=== PATIENT | male | born 1970 | race Caucasian/White ===

== ENCOUNTER 2017-12-18 02:21 | Emergency (ER) | payer OTHER, SELFPAY ==
[2017-12-18 02:26] VITALS: BP 144/84; PULSE 68; RESP 20; TEMP 36.8; O2SAT 100; BMI 38.5
[2017-12-18] MEDS: KETOROLAC 60 MG/2 ML VIAL 30 MG IM (02:48)
[2017-12-18] MEDS: CYCLOBENZAPRINE 10 MG PREPACK 1 BOTTLE MISC (02:48)
[2017-12-18] MEDS: HYDROCODONE/ACET 5/325 PREPACK 1 BOTTLE MISC (02:48)
--- NOTE | 2017-12-18 02:58 | ED_ITS ---
HPI - Back Pain/Injury General Chief Complaint: Back Pain/Injury Stated Complaint: right shoulder pain, unable to move Time Seen by Provider: 12/18/17 02:22 Source: patient Mode of arrival: ambulatory Limitations: no limitations History of Present Illness HPI Narrative: 47-year-old male here for evaluation of left upper back pain. Patient states that it started after he woke up after sleeping on the couch. He states that he has had similar symptoms in the past. He has been told that it was musculoskeletal. He states that he has seen a chiropractor in the past for it. He states that today's pain is like his prior pain. Prior to his nap he was not having any discomfort. He states that after he has woken up he has been unable to stand up straight in move his left arm secondary to the pain. Has not tried anything for it prior to arrival Related Data Home Medications Medication Instructions Recorded Confirmed acyclovir 800 mg PO TIDP PRN #0 05/09/17 omeprazole 20 mg PO QDAYP PRN #0 05/09/17 Previous Rx's Medication Instructions Recorded oxycodone-acetaminophen [Percocet] 1 - 2 tab PO Q6HP PRN #20 tab 05/09/17 Allergies Allergy/AdvReac Type Severity Reaction Status Date / Time No Known Allergies Allergy Uncoded 10/16/17 11:47 Review of Systems Constitutional Denies chills, Denies fever(s), Denies lethargy and Denies weakness Cardiovascular Denies dyspnea and Denies dyspnea on exertion Respiratory Denies cough, Denies dyspnea, Denies dyspnea on exertion and Denies wheezing Musculoskeletal Comments: left-sided mid back pain Integumentary/Breasts Denies pruritus, Denies erythema, Denies rash and Denies wounds Neurologic Denies weakness Hematologic/Lymphatic Denies easy bruising Allergic/Immunologic Denies wheezing [facility] Social History Smoking Status: Never smoker Exam Initial Vital Signs Initial Vital Signs: Vital Signs Temperature 98.3 F 12/18/17 02:26 Pulse Rate 68 12/18/17 02:26 Respiratory Rate 20 12/18/17 02:26 Blood Pressure 144/84 H 12/18/17 02:26 Pulse Oximetry 100 12/18/17 02:26 Const General: cooperative and well developed Nutritional Appearance: well nourished Orientation: alert, awake, oriented x3 and not confused Resp Effort & Inspection: normal respiratory effort, no cough and not labored Back/Spine/Pelvis Back: normal to inspection, back tenderness and No CVA tenderness Cervical Spine: No cervical muscular tenderness, No pain with cervical ROM, No cervical spasm and No cervical spinal tenderness Thoracic/Lumbar Spine: thoracic and lumbar spine normal to inspection, No surgical scar(s) present and paraspinal tenderness ( left over the rhomboids) Skin General: no rashes or lesions noted, No jaundice and No petechiae Neuro General: alert, awake and oriented x3 Cognition: normal cognition Speech: speech normal Course Orders Ordered: Discontinued Medications Hydrocodone Bitart/Acetaminophen (Vicodin Prepack) 1 bottle MISC SEEINSTR ONE Stop: 12/18/17 02:42 Last Admin: 12/18/17 02:48 Dose: 1 bottle Cyclobenzaprine HCl (Flexeril 10 Mg Prepack) 1 bottle MISC SEEINSTR ONE Stop: 12/18/17 02:42 Last Admin: 12/18/17 02:48 Dose: 1 bottle Ketorolac Tromethamine (Toradol) 30 mg IM NOW ONE Stop: 12/18/17 02:42 Last Admin: 12/18/17 02:48 Dose: 30 mg Vital Signs - 8 hr 12/18/17 02:26 Temperature 98.3 F Pulse Rate 68 Respiratory Rate 20 Blood Pressure 144/84 H Pulse Oximetry 100 MDM - Back Pain/Injury MDM Narrative Medical decision making narrative: patient with tenderness to palpation over the rhomboids on the left side. He has no symptoms inferior to the rhomboids and no symptoms superior. No skin changes. We did discuss the fact that his symptoms are musculoskeletal. We discussed care instructions to include anti- inflammatories and light stretching and heat /ice. He was given a Toradol shot here in the emergency department. Was sent home with a prepack of Flexeril and [place]. We did discuss the other modalities that he can do at home. He was given return precautions. He was informed that this may take several days to improve. Will hold on any radiologic studies for now. Discharge Plan Departure Patient Disposition: Home, Self-Care Clinical Impression: Thoracic back pain Instructions: How To Perform RICE (Rest, Ice, Compress, Elevate), DI for Back Strain or Sprain Activity Restrictions/Additional Instructions: recommend that you continue with the anti-inflammatories such as Motrin / Naprosyn/ibuprofen/Advil. Take the other medications that she were given this evening as directed. Also recommend that you continue with light stretching and massage. You can also ice the area. The area may be sore for the next several days. Return to the emergency department for any new or worsening symptoms Prescriptions: No Action acyclovir 800 MG tablet 800 mg PO TIDP PRNQty: 0 RF: 0 omeprazole 20 MG tablet,delayed release (DR/EC) 20 mg PO QDAYP PRNQty: 0 RF: 0 oxycodone-acetaminophen [Percocet] 5 MG/325 MG tablet 1 - 2 tab PO Q6HP PRNQty: 20 RF: 0
[2017-12-18 03:33] VITALS: BP 128/72; PULSE 72; RESP 18; O2SAT 100
== END 2017-12-18 03:25 | disposition home or self-care (01) ==
PROVIDERS: Emergency Provider Emergency Medicine
DX: M54.6 Pain in thoracic spine (principal)
CPT/HCPCS: 96372; 99282; 99283; J1885

== ENCOUNTER → 2020-08-15 15:25 | Outpatient (CLI) | payer BC, SELFPAY ==
--- NOTE | 2020-08-15 | DI.RAD.S_ITS ---
PROCEDURE: XR SHOULDER LT MIN 2V INDICATIONS: LEFT SHOULDER PAIN TECHNIQUE: 3 views of the shoulder were acquired. COMPARISON: None. FINDINGS: Bones: No fractures or dislocations. Moderate acromioclavicular joint and glenohumeral joint osteoarthritic changes are seen. No suspicious bony lesions. Visualized ribs appear intact. Soft tissues: No suspicious soft tissue calcifications. IMPRESSION: Moderate left shoulder joint osteoarthritis. No fracture or dislocation. Dictated by: Thomas Boyd M.D. on 08/15/2020 at 16:35 Approved by: Thomas Boyd M.D. on 08/15/2020 at 16:36
== END ==
PROVIDERS: PCP Student in an Organized Health Care Education/Training Program; Referring Provider Student in an Organized Health Care Education/Training Program; Visit Provider Student in an Organized Health Care Education/Training Program
DX: M25.512 Pain in left shoulder (principal); M19.012 Primary osteoarthritis, left shoulder
CPT/HCPCS: 73030

== ENCOUNTER → 2020-10-15 08:26 | Outpatient (CLI) | payer BC, SELFPAY ==
[2020-10-15 09:14] LABS: Add Manual Diff / Slide Review NO; Basophils Absolute Auto 0 /uL (0-100); Basophils Percent Auto 0.4 % (0-2); Eosinophils Absolute Auto 200 /uL (0-450); Eosinophils Percent Auto 3.1 % (2-4); Hematocrit 40.1 % (41-53); Hemoglobin 13.4 g/dL (13.5-17.5); Lymphocytes Absolute Auto 2100 /uL (1100-4500); Lymphocytes Percent Auto 37.7 % (25-40); Mean Corpuscular HGB Conc 33.4 % (30-36); Mean Corpuscular Hemoglobin 29.7 PG (26-34); Mean Corpuscular Volume 88.9 fL (80-100); Monocytes Absolute Auto 500 /uL (0-900); Monocytes Percent Auto 9.4 % (3-14); Neutrophils Absolute Auto 2800 /uL (1500-7000); Neutrophils Percent Auto 49.4 % (50-75); Platelet Count 217 X10^3/uL (150-400); Red Blood Cell Count 4.52 X10^6/uL (4.5-5.9); Red Cell Distribution Width 13.5 % (11.6-14.8); White Blood Cell Count 5.6 X10^3/uL (4.5-11.0)
[2020-10-15 09:40] LABS: Alanine Aminotransferase 21 IU/L (<50); Albumin 3.9 g/dL (3.5-5.0); Albumin Globulin Ratio 1.6 (1.0-2.8); Alkaline Phosphatase 77 U/L (38-126); Aspartate Aminotransferase 28 IU/L (17-59); BUN Creatinine Ratio 20.5 (6-22); Bilirubin Total 0.8 mg/dL (0.2-1.3); Blood Urea Nitrogen 18 mg/dL (9-20); Calcium 9.7 mg/dL (8.4-10.2); Carbon Dioxide 30 mmol/L (22-32); Chloride 103 mmol/L (98-107); Cholesterol 198 mg/dL (140-199); Estimated Glomerular Filt Rate > 60.0 mL/min (>60); Globulin 2.5 g/dL (1.7-4.1); Glucose 98 mg/dL (70-100); HDL Cholesterol 57 mg/dL (40-60); HEMOLYSIS < 15 (0-50); LDL Cholesterol Calculated 128 mg/dL (<100); Potassium 4.6 mmol/L (3.4-5.1); Sodium 138 mmol/L (137-145); Total Protein 6.4 g/dL (6.3-8.2); Triglycerides 65 mg/dL (35-150)
[2020-10-15 10:47] LABS: Prostate Specific Antigen 0.723 ng/mL (0.10-4.00)
== END ==
PROVIDERS: PCP Family Medicine; Referring Provider Family Medicine; Visit Provider Family Medicine
DX: Z00.00 Encounter for general adult medical examination without abnormal findings (principal)
CPT/HCPCS: 36415; 80053; 80061; 84153; 85025

== ENCOUNTER → 2020-12-07 16:15 | Outpatient (CLI) | payer BC, SELFPAY ==
[2020-12-07 17:02] LABS: COVID19 -Nasal RAPID Negative (Negative)
== END ==
PROVIDERS: PCP Family Medicine; Visit Provider Surgery
DX: Z20.822 Contact with and (suspected) exposure to COVID-19 (principal)
CPT/HCPCS: 87635; C9803

== ENCOUNTER 2020-12-08 11:58 | Day surgery (SDC) | payer BC, SELFPAY ==
[2020-12-08] VITALS (11 sets, daily range): BP systolic 90–128; BP diastolic 48–73; PULSE 47–69; RESP 12–16; TEMP 35.9–36.9; O2SAT 97–99; BMI 28.8
--- NOTE | 2020-12-08 | PATH_ITS ---
[facility] Accession Number: [id number] . 01 Material submitted: . rectum - RECTAL POLYP . 02 Diagnosis: Rectum, Polyp, Biopsy: Hyperplastic polyp. MRV 12/13/2020 1504 Local . 02 Electronically signed: . Hoda Correa MD, Pathologist NPI- [id number] . 01 Gross description: . RECTAL POLYP: Received in formalin is 1 fragment(s) of lang, soft tissue measuring 0.3 x 0.2 x 0.2 cm submitted entirely in 1 cassette(s) /RAY 12/09/2020 0714 Local . 02 Pathologist provided ICD-10: K62.1 . 02 CPT . 254058 Performed at: 01 [facility] [address] [facility], [place], [place] [id number] MD Juan Maldonado MD Phone: [phone] Performed at: 02 [facility] [address] [place], [place] [id number] MD Hoda Correa MD Phone: [phone]
[2020-12-08] MEDS: LACTATED RINGERS 1,000 ML 200 ML IV (13:26)
--- NOTE | 2020-12-08 13:30 | PM.HP.1 ---
History of Present Illness History of Present Illness Date Patient Seen: 12/08/20 Time Patient Seen: 13:30 Chief complaint: SCREENING COLONOSCOPY Narrative: The patient presents for colorectal sreening. He had previous endoscopy 5 years ago significant for benign polyps. No personal or family history of colon cancer. On further history denies any recent gastrointestinal symptoms. No nausea, vomiting, abdominal pain, loss of appetite, unexplained weight loss, change in bowel habits, diarrhea, constipation, melena, hematochezia, or bright red blood per rectum. Patient History Medical History Dermatitis Encounter for well adult exam without abnormal findings Fractures Headache Herpes Lisfranc dislocation Preventative health care Shoulder pain (~1999) Wears glasses Surgical History Anesthesia Hammer toes of both feet (~1975) History of foot surgery (~2011) Hx of arthroscopy of left knee Family & Social History Social History: household members significant other Tobacco & Substance use: Smoking Status Never smoker alcohol intake current alcohol intake frequency a few times a month Substance Use Type does not use Meds Home Medications and Allergies Home Medications Medication Instructions Recorded Confirmed Type clobetasol 0.05 % topical cream 1 applic TOPICAL DAILY PRN 10/11/20 12/08/20 History famciclovir 125 mg tablet 125 mg PO tab 10/11/20 10/18/20 History omeprazole 20 mg capsule,delayed 20 mg PO DAILY 10/11/20 12/08/20 History release Allergies Allergy/AdvReac Type Severity Reaction Status Date / Time pollen extracts Allergy Congested Verified 12/08/20 13:13 Review of Systems Review of Systems ROS: Yes All systems reviewed with the patient and are negative except as otherwise documented Exam Vital Signs (past 8 hours): - 12/08/20 13:13 Temperature 96.7 F L Pulse Rate 61 Respiratory Rate 16 Blood Pressure 128/73 Pulse Oximetry 97 Oxygen Delivery Method Room Air Oxygen Flow Rate 0 Narrative Exam Narrative: GENERAL-well developed adult male, no acute distress HEENT-no scleral icterus, hearing intact NECK-no JVD, trachea midline CVS- regular rate, no peripheral edema RESP-unlabored respiratory effort, no audible wheezing GI-soft, nontender nondistended MSK-no cyanosis or clubbing, extremities without deformity SKIN-warm, dry NEURO-alert and oriented, no focal deficits PYSCH-Appropriate mood and affect Assessment & Plan Assessment & Plan narrative: The patient requires colorectal screening and colonoscopy is recommended. Technical details were discussed. Risks, benefits, alternatives explained. Risks including but not limited to myocardial infarction, aspiration, bleeding, pain, missed lesion, incomplete examination, need for further radiographic studies, colonic perforation, and need for major abdominal surgery were discussed. All questions were answered to their satisfaction, and they are in agreement with this plan.
[2020-12-08] MEDS: MIDAZOLAM 5 MG/5 ML VIAL IV (14:30)
[2020-12-08] MEDS: fentaNYL 250 MCG/5 ML INJ IV (14:30)
--- NOTE | 2020-12-08 15:38 | PM.OP.ENDO ---
Operative Date/Time/Diagnoses Date of procedure: 12/08/20 Time of procedure: 15:39 Pre-op diagnosis: Personal history of colonic polyps Post-op diagnosis: same Procedure & Clinicians Study performed: Colonoscopy and polypectomy Same procedure as scheduled: Yes Indications: Personal history of colonic polyps Surgeon: Shane Colunga Procedure Notes Procedure in detail: Medications: Conscious sedation using 6mg IV midazolam and 200mcg IV of fentanyl The history and physical was performed/updated and the patient is ASA class is 2. The procedure was discussed in detail with the patient. Potential risks complications including infection, bleeding, missed diagnosis, perforation, need for surgery, and were explained. Their questions were answered and informed consent was obtained. Patient was brought to the procedure room and placed standard monitoring equipment. The patient's vital signs were monitored continuously throughout the entire procedure. Prior to starting time-out was performed. The patient was placed in the left lateral recumbent position. Procedural sedation was administered. Examination began with a thorough inspection of the perianal area there was no evidence of fissures, fistulae, external hemorrhoids or cutaneous malignancy. The colonoscopy scope was then placed into the anal canal and was advanced to the cecum, which was identified by the ileocecal valve, the appendiceal orifice and the confluence of the taenia. The scope was then slowly withdrawn examining colon thoroughly in all directions, irrigating it of any residual stool. 1. 5 mm polyp in the rectum removed with biopsy forceps. 2. sigmoid diverticulosis 3. Grade 1 internal hemorrhoids The patient tolerated the procedure well. They will be discharged once criteria are met. The prep was of good/excellent quality. The withdrawl time was 6 minutes. The sedation time was 24 minutes. Specimen(s): other (Rectal polyp) Complications: none Impression: Colonic polyp Post-procedure Recommendations: Colonscopy in 5 years Disposition: same day surgery
== END 2020-12-08 16:01 | disposition home or self-care (01) ==
PROVIDERS: PCP Family Medicine; Referring Provider Surgery; Visit Provider Surgery
PROC: 0DJD8ZZ Inspection of Lower Intestinal Tract, Via Natural or Artificial Opening Endoscopic (ICD-10-PCS; CPT 45378; principal; 2020-12-08 13:00)
DX: Z12.11 Encounter for screening for malignant neoplasm of colon (principal); Z86.010 Personal history of colon polyps; K57.30 Diverticulosis of large intestine without perforation or abscess without bleeding; K64.0 First degree hemorrhoids; K62.1 Rectal polyp
CPT/HCPCS: 45380; 99152; J2250; J3010

== ENCOUNTER → 2021-05-02 17:09 | Outpatient (CLI) | payer BC, SELFPAY ==
--- NOTE | 2021-05-02 | DI.RAD.S_ITS ---
PROCEDURE: XR THORACIC SPINE 3V INDICATIONS: Back Pain TECHNIQUE: 3 views of the thoracic spine were acquired. COMPARISON: None. FINDINGS: Bones: No fractures or dislocations. Anterior endplate osteophytosis. Tclm-fo-xrnbtemj disc height loss. No suspicious bony lesions. 12 pairs of ribs are noted, and appear intact where visualized. Soft tissues: No paravertebral stripe thickening. IMPRESSION: No acute osseous abnormality. Dictated by: Myke Alford M.D. on 05/03/2021 at 9:03 Approved by: Myke Alford M.D. on 05/03/2021 at 9:06
== END ==
PROVIDERS: PCP Family Medicine; Referring Provider Chiropractor; Visit Provider Chiropractor
DX: S23.110A Subluxation of T1/T2 thoracic vertebra, initial encounter (principal); M54.9 Dorsalgia, unspecified
CPT/HCPCS: 72072

== ENCOUNTER → 2022-01-25 16:21 | Outpatient (CLI) | payer BC, SELFPAY ==
--- NOTE | 2022-01-25 16:24 | DI.RAD.S_ITS ---
PROCEDURE: XR KNEE LT 3V INDICATIONS: left knee pain TECHNIQUE: 3 views of the knee were acquired. COMPARISON: None. FINDINGS: Bones: Degenerative changes and medial joint space narrowing. No fractures or dislocations. No suspicious bony lesions. There is joint space narrowing of the lateral patellar facet. Soft tissues: No joint effusion. No suspicious soft tissue calcifications. IMPRESSION: Tricompartmental degenerative changes consistent with osteoarthritis. Dictated by: James Anthony M.D. on 01/25/2022 at 17:14 Approved by: James Anthony M.D. on 01/25/2022 at 17:15
== END ==
PROVIDERS: PCP Family Medicine; Referring Provider Family Medicine; Visit Provider Family Medicine
DX: M25.562 Pain in left knee (principal); G89.29 Other chronic pain
CPT/HCPCS: 73562

== ENCOUNTER → 2023-01-22 16:09 | Outpatient (CLI) | payer BC, SELFPAY ==
--- NOTE | 2023-01-22 16:11 | DI.RAD.S_ITS ---
PROCEDURE: XR THORACIC SPINE 3V INDICATIONS: Worsening neck and upper back pain TECHNIQUE: 3 views of the thoracic spine were acquired. COMPARISON: [facility], CR, XR THORACIC SPINE 3V, 05/02/2021, 17:06. FINDINGS: Bones: Loss of height noted in the T7 vertebral body compatible with compression fracture of indeterminate age. T7 compression deformity results in approximately 40% loss of normal anterior vertebral body height. No suspicious bony lesions. 12 pairs of ribs are noted, and appear intact where visualized. Moderate degenerative disc changes throughout the thoracic spine. Soft tissues: No paravertebral stripe thickening. IMPRESSION: T7 compression fracture of indeterminate age. If symptoms and/or clinical suspicion for pathology persists, evaluation with CT or MRI should be considered for further assessment. Multilevel degenerative disc disease. Multilevel facet arthropathy. Dictated by: Cat Bauman MD, PhD on 01/22/2023 at 17:10 Approved by: Cat Bauman MD, PhD on 01/22/2023 at 17:11
--- NOTE | 2023-01-22 16:11 | DI.RAD.S_ITS ---
PROCEDURE: XR CERVICAL SPINE 2V OR 3V INDICATIONS: Worsening neck and upper back pain TECHNIQUE: 3 view(s) of the cervical spine were acquired. COMPARISON: None. FINDINGS: Bones: No fractures or dislocations to the T1 level. The lateral masses of C1 appear intact on the odontoid view. No suspicious bony lesions. Mild degenerative disc changes throughout the cervical spine. Mild facet and uncovertebral hypertrophy throughout the cervical spine. Soft tissues: No prevertebral soft tissue swelling. IMPRESSION: 1. Multilevel degenerative disc disease. 2. Multilevel facet and uncovertebral arthropathy. 3. No fracture. No acute osseous lesion. If symptoms and/or clinical suspicion for pathology persists, evaluation with MRI should be considered for further assessment. Dictated by: Cat Bauman MD, PhD on 01/22/2023 at 17:09 Approved by: Cat Bauman MD, PhD on 01/22/2023 at 17:10
[2023-01-22 18:42] LABS: Rheumatoid Factor < 8.6 IU/mL (<12.0)
[2023-01-22 20:44] LABS: Erythrocyte Sedimentation Rate 4 MM/HR (0-15)
[2023-01-22 20:46] LABS: Add Manual Diff / Slide Review NO; Basophils Absolute Auto 0 /uL (0-100); Basophils Percent Auto 0.5 % (0-2); Eosinophils Absolute Auto 200 /uL (0-450); Eosinophils Percent Auto 3.6 % (2-4); Hematocrit 38.7 % (41-53); Hemoglobin 12.9 g/dL (13.5-17.5); Lymphocytes Absolute Auto 2000 /uL (1100-4500); Lymphocytes Percent Auto 32.9 % (25-40); Mean Corpuscular HGB Conc 33.3 % (30-36); Mean Corpuscular Hemoglobin 28.9 PG (26-34); Mean Corpuscular Volume 86.8 fL (80-100); Monocytes Absolute Auto 500 /uL (0-900); Neutrophils Absolute Auto 3400 /uL (1500-7000); Platelet Count 220 X10^3/uL (150-400); Red Blood Cell Count 4.46 X10^6/uL (4.5-5.9); Red Cell Distribution Width 13.6 % (11.6-14.8); White Blood Cell Count 6.2 X10^3/uL (4.5-11.0)
[2023-01-24 17:36] LABS: CCP Antibodies IgG/IgA 4 units (0-19)
[2023-01-26 15:44] LABS: ANA Screen, IFA Negative (.)
[2023-01-28 16:29] LABS: HLA B27 Negative (.)
== END ==
PROVIDERS: PCP Family Medicine; Referring Provider Family Medicine; Visit Provider Family Medicine
DX: M47.812 Spondylosis without myelopathy or radiculopathy, cervical region (principal); M47.814 Spondylosis without myelopathy or radiculopathy, thoracic region; M50.30 Other cervical disc degeneration, unspecified cervical region; M51.34 Other intervertebral disc degeneration, thoracic region; M45.9 Ankylosing spondylitis of unspecified sites in spine
CPT/HCPCS: 36415; 72040; 72072; 81374; 85025; 85651; 86038; 86200; 86430

== ENCOUNTER → 2023-08-09 10:23 | Outpatient (CLI) | payer OTHER, MEDICAID, SELFPAY ==
[2023-08-09 11:14] LABS: Add Manual Diff / Slide Review NO; Basophils Absolute Auto 0 /uL (0-100); Basophils Percent Auto 0.4 % (0-2); Eosinophils Absolute Auto 200 /uL (0-450); Eosinophils Percent Auto 3.7 % (2-4); Hematocrit 40.3 % (41-53); Hemoglobin 13.6 g/dL (13.5-17.5); Lymphocytes Absolute Auto 2300 /uL (1100-4500); Lymphocytes Percent Auto 38.3 % (25-40); Mean Corpuscular HGB Conc 33.6 % (30-36); Mean Corpuscular Hemoglobin 29.2 PG (26-34); Mean Corpuscular Volume 86.9 fL (80-100); Monocytes Absolute Auto 500 /uL (0-900); Monocytes Percent Auto 8.5 % (3-14); Neutrophils Absolute Auto 2900 /uL (1500-7000); Neutrophils Percent Auto 49.1 % (50-75); Platelet Count 212 X10^3/uL (150-400); Red Blood Cell Count 4.64 X10^6/uL (4.5-5.9); Red Cell Distribution Width 13.8 % (11.6-14.8); White Blood Cell Count 5.9 X10^3/uL (4.5-11.0)
[2023-08-09 11:19] LABS: Alanine Aminotransferase 22 IU/L (<50); Albumin 4.1 g/dL (3.5-5.0); Albumin Globulin Ratio 1.4 (1.0-2.8); Alkaline Phosphatase 64 U/L (38-126); Aspartate Aminotransferase 28 IU/L (17-59); BUN Creatinine Ratio 19.8 (6-22); Bilirubin Total 0.8 mg/dL (0.2-1.3); Blood Urea Nitrogen 19 mg/dL (9-20); Calcium 9.6 mg/dL (8.4-10.2); Carbon Dioxide 31 mmol/L (22-32); Chloride 103 mmol/L (98-107); Cholesterol 242 mg/dL (140-199); Estimated Glomerular Filt Rate > 60 mL/min (>60); Globulin 2.9 g/dL (1.7-4.1); Glucose 97 mg/dL (70-100); HDL Cholesterol 45 mg/dL (40-60); HEMOLYSIS < 15 (0-50); LDL Cholesterol Calculated 160 mg/dL (<100); Potassium 4.6 mmol/L (3.4-5.1); Sodium 137 mmol/L (137-145); Triglycerides 185 mg/dL (35-150)
[2023-08-09 11:41] LABS: Vitamin D 25 Hydroxy (D3) 112 ng/mL (30.0-100.0)
[2023-08-09 11:48] LABS: Prostate Specific Antigen 0.828 ng/mL (0.10-4.00)
== END ==
LOC: LAB 10:23
PROVIDERS: PCP Family Medicine; Referring Provider Family Medicine; Visit Provider Family Medicine
DX: Z00.00 Encounter for general adult medical examination without abnormal findings (principal); R79.89 Other specified abnormal findings of blood chemistry
CPT/HCPCS: 36415; 80053; 80061; 82306; 84153; 85025

== ENCOUNTER → 2024-08-10 08:26 | Outpatient (CLI) | payer OTHER, SELFPAY ==
[2024-08-10 09:12] LABS: Influenza A - CEPHEID Flu A NEGATIVE (NEGATIVE); Influenza B - CEPHEID Flu B NEGATIVE (NEGATIVE); Respiratory Syncytial Virus Negative (Negative)
[2024-08-10 09:13] LABS: COVID-19 CEPHEID 4-PLEX PCR Negative (Negative)
== END ==
PROVIDERS: PCP Family Medicine; Visit Provider Registered Nurse
DX: R05.1 Acute cough (principal)
CPT/HCPCS: 0241U

== ENCOUNTER → 2024-09-25 16:46 | Outpatient (CLI) | payer OTHER, SELFPAY ==
[2024-09-25 18:10] LABS: Add Manual Diff / Slide Review NO; Basophils Absolute Auto 0 /uL (0-100); Basophils Percent Auto 0.3 % (0-2); Eosinophils Absolute Auto 200 /uL (0-450); Eosinophils Percent Auto 3.7 % (2-4); Hematocrit 39.1 % (41-53); Hemoglobin 12.9 g/dL (13.5-17.5); Lymphocytes Absolute Auto 2500 /uL (1100-4500); Lymphocytes Percent Auto 39.4 % (25-40); Mean Corpuscular Hemoglobin 28.7 PG (26-34); Mean Corpuscular Volume 87.1 fL (80-100); Monocytes Absolute Auto 600 /uL (0-900); Neutrophils Absolute Auto 3000 /uL (1500-7000); Neutrophils Percent Auto 46.6 % (50-75); Platelet Count 227 X10^3/uL (150-400); White Blood Cell Count 6.4 X10^3/uL (4.5-11.0)
[2024-09-25 18:33] LABS: Alanine Aminotransferase 73 IU/L (<50); Albumin 4.4 g/dL (3.5-5.0); Albumin Globulin Ratio 1.9 (1.0-2.8); Alkaline Phosphatase 71 U/L (38-126); Aspartate Aminotransferase 72 IU/L (17-59); BUN Creatinine Ratio 19.6 (6-22); Bilirubin Total 0.6 mg/dL (0.2-1.3); Blood Urea Nitrogen 19 mg/dL (9-20); Calcium 9.6 mg/dL (8.4-10.2); Carbon Dioxide 28 mmol/L (22-32); Chloride 100 mmol/L (98-107); Cholesterol 219 mg/dL (140-199); Estimated Glomerular Filt Rate > 60 mL/min (>60); Globulin 2.3 g/dL (1.7-4.1); Glucose 87 mg/dL (70-100); HDL Cholesterol 50 mg/dL (40-60); HEMOLYSIS < 15 (0-50); LDL Cholesterol Calculated 147 mg/dL (<100); Potassium 4.7 mmol/L (3.4-5.1); Sodium 136 mmol/L (137-145); Total Protein 6.7 g/dL (6.3-8.2); Triglycerides 108 mg/dL (35-150)
[2024-09-25 19:03] LABS: Prostate Specific Antigen 0.645 ng/mL (0.10-4.00)
== END ==
PROVIDERS: PCP Family Medicine; Referring Provider Family Medicine; Visit Provider Family Medicine
DX: Z00.00 Encounter for general adult medical examination without abnormal findings (principal); M25.561 Pain in right knee; M25.562 Pain in left knee
CPT/HCPCS: 36415; 80053; 80061; 84153; 85025

== ENCOUNTER → 2024-11-05 15:12 | Outpatient (CLI) | payer OTHER, SELFPAY ==
--- NOTE | 2024-11-05 15:16 | DI.ECHO.S_ITS ---
[facility] : : [id number] : [place] : : [id number] : : Phone: [phone] Echocardiogram Report + + :Name: THEA PEREIRA Study Date: 11/05/2024 Height: 74 in : :Hospital ReadingLocation: Weight: 240 lb : : Gender: Male BSA: 2.3 m2 : :: 1970 Age: 54 yrs BP: 141/88 mmHg: :Reason For Study: MURMUR : :Ordering Physician: TOÑO, : :MANNY Performed By: Maicol Perez : :Referring: MANNY LUNDBERG : + + Interpretation Summary 1) Normal left ventricular thickness, size, wall motion, and systolic function (EF 60-65%). 2) Normal right ventricular size and function. 3) There is moderate aortic stenosis (valve area 1.4cm2, mean gradient 35.5mmHg, severity ratio 0.36). Right coronary cusp appears heavily calcified with significantly reduced mobility. 4) No prior Echo available for comparison. Recommend cardiology consultation. Procedure: A two-dimensional transthoracic echocardiogram with color flow and Doppler was performed. The study quality was technically good. There is no prior echocardiogram noted for this patient. The patient was in normal sinus rhythm during the exam. Left Ventricle: There is normal left ventricular wall thickness. The left ventricle is mildly dilated. There is no ventricular septal defect visualized. The ejection fraction is estimated to be 60-65%. There are no focal wall motion abnormalities. Diastolic parameters suggest probable normal left ventricular diastolic function and normal filling pressures. Right Ventricle: The right ventricle is normal in size and function. Atria: The left atrium is mildly dilated. The right atrium is moderately dilated. There is no Doppler evidence for an interatrial shunt. Mitral Valve: The mitral valve leaflets appear mildly thickened, but open well. There is no mitral regurgitation noted. Aortic Valve: The aortic valve is trileaflet. Right coronary cusp appears heavily calcified with significantly reduced mobility. There is moderate aortic stenosis. The peak aortic velocity is 3.85 m/sec. The aortic valve mean gradient is 35.5 mmHg. The calculated aortic valve area is 1.4 cm2. There is mild aortic regurgitation. Tricuspid Valve: The tricuspid valve leaflets are thin and pliable. There is trace tricuspid regurgitation. Pulmonic Valve: The pulmonic valve is not well visualized. There is no pulmonic valvular regurgitation. Great Vessels: The aortic root is borderline dilated. The pulmonary artery is normal size. The inferior vena cava was not visualized. Pericardium/ Pleura There is no pericardial effusion. MMode/2D Measurements & Calculations LVIDd: 6.1 cm LVOT diam: 2.2 cm LVIDs: 3.4 cm Ao root diam: 3.9 cm FS: 44.8 % asc Aorta Diam: 3.9 cm EPSS: 0.58 cm IVSd: 0.88 cm LVPWd: 1.00 cm LV bedolla. diameter/BSA (cm/m^2): 2.6 LV sys. diameter/BSA (cm/m^2): 1.4 LA A2 area: 24.6 cm2 RA long axis: 5.7 cm LA A4 area: 23.9 cm2 RA area: 24.6 cm2 LA length (vol): 6.3 cm RA vol: 90.4 ml LA vol: 78.8 ml RA : 38.5 ml/m2 LA vol index: 33.5 ml/m2 RVD1 (basal): 3.8 cm RVD2 (mid): 3.2 cm TAPSE: 3.6 cm Doppler Measurements & Calculations Ao V2 max: 384.7 cm/sec LVOT Max Tone: 142.0 cm/sec Ao V2 mean: 279.6 cm/sec LV V1 max P.1 mmHg Ao max P.2 mmHg LV V1 VTI: 31.4 cm Ao mean P.5 mmHg RAY(I,D): 1.4 cm2 Ao V2 VTI: 86.2 cm RAY(V,D): 1.4 cm2 sev ratio: 0.36 RAY indexed to BSA (cm^2/m^2): 0.58 MV E max tone: 89.4 cm/sec TR max tone: 235.3 cm/sec MV A max tone: 69.9 cm/sec TR max P.1 mmHg MV E/A: 1.3 PA V2 max: 99.8 cm/sec Med Peak E' Tone: 8.8 cm/sec PA V2 mean: 69.2 cm/sec E/E' med: 10.1 PA mean P.1 mmHg Lat Peak E' Tone: 12.9 cm/sec PA pr(Accel): 49.9 mmHg E/E' lat: 6.9 E/e' average: 8.5 MV dec time: 0.22 sec SV(LVOT): 116.6 ml Reading Physician:06:12 PM
--- NOTE | 2024-11-05 15:18 | DI.RAD.S_ITS ---
PROCEDURE: XR DEXA AXIAL SKELETON INDICATIONS: OSTEOPORSIS COMPARISON: None. FINDINGS: Lumbar Spine: Bone mineral density 1.337 g/cm2, T score 2.6. Left Femoral Neck: Bone mineral density 0.860 g/cm2, T score 0.1. Left Hip: Bone mineral density 1.103 g/cm2, T score 1.3. (T score greater or equal to -1.0 to: NORMAL) (T score from -1.1 to -2.4: OSTEOPENIA) (T score less than or equal to -2.5: OSTEOPOROSIS) IMPRESSION: Normal bone mineral density by WHO classification. Follow-up guidelines as follows: Osteoporosis: Consider a repeat DEXA and Vertebral Fracture Assessment (VFA) exam in 2 years or sooner if medically necessary, to reassess this patient's status. Osteopenia: Consider a repeat DEXA in 2-3 years to reassess this patient's status, or if there is a new clinical indication. Normal: Consider a repeat DEXA in 5 years or sooner, or if there is a new clinical indication. All treatment decisions require clinical judgment and consideration of individual patient factors, including patient preferences, comorbidities, previous drug use, risk factors not captured in the FRAX model (e.g., frailty, falls, vitamin D deficiency, increased bone turnover, interval significant decline in bone density ) and possible under- or over-estimation of fracture risk by FRAX. In addition, the NOF Guide recommends that FDA-approved medical therapies be considered in postmenopausal women and men age >= 50 years with a: * Hip or vertebral (clinical or morphometric) fracture * T-score of <=-2.5 at the spine or hip * Ten-year fracture probability by FRAX of >= 3% for hip fracture or >=20% for major osteoporotic fracture. Dictated by: Cj Benavides M.D. on 11/06/2024 at 12:16 Approved by: Cj Benavides M.D. on 11/06/2024 at 12:19
== END ==
PROVIDERS: PCP Family Medicine; Referring Provider Family Medicine; Visit Provider Internal Medicine Rheumatology
DX: R01.1 Cardiac murmur, unspecified; S22.060D Wedge compression fracture of T7-T8 vertebra, subsequent encounter for fracture with routine healing; M45.0 Ankylosing spondylitis of multiple sites in spine; I35.2 Nonrheumatic aortic (valve) stenosis with insufficiency
CPT/HCPCS: 77080; 93306

== ENCOUNTER → 2025-05-03 08:04 | Outpatient (CLI) | payer OTHER, SELFPAY ==
--- NOTE | 2025-05-03 08:05 | DI.NM.S_ITS ---
PROCEDURE: NM EXERCISE TREADMILL NON NUC COMPARISON: None. INDICATIONS: precordial pain FINDINGS: Rest ECG sinus rhythm 81 bpm, RBBB, LAFB. Jerad protocol 8:58, maximum heart rate 156 bpm (95% peak predicted), peak blood pressure 198/106, 10.1 METS, MARTINEZ +6%. Exercise ECG sinus tachycardia, no clear ischemia however ST segment interpretation is limited due to bundle branch and fascicular block. The patient did not report exercise-induced chest discomfort. IMPRESSION: Equivocal study. No clear evidence of exercise-induced ischemia however interpretation is limited due to the presence of RBBB and LAFB. Hypertensive response. Normal heart rate response. Slightly reduced exercise capacity. Dictated by: Bessy Steele D.O. on 05/03/2025 at 17:09 Approved by: Bessy Steele D.O. on 05/03/2025 at 17:16
== END ==
LOC: NUCM 08:04
PROVIDERS: PCP Family Medicine; Referring Provider Family Medicine; Visit Provider Internal Medicine Cardiovascular Disease
DX: I35.0 Nonrheumatic aortic (valve) stenosis (principal); R07.2 Precordial pain
CPT/HCPCS: 93017